=== PATIENT | female | born 1995 | race Caucasian/White ===

== ENCOUNTER 2016-06-09 12:16 | Day surgery (SDC) | payer OTHER ==
[2016-06-09] MEDS ORDERED: MORPHINE SULFATE 4 MG/ML SYRINGE ONE ×2 (13:24→19:09)
[2016-06-09] MEDS ORDERED: SODIUM CHLORIDE 0.9% 1,000 ML ONE (13:24)
[2016-06-09] MEDS ORDERED: ONDANSETRON 4 MG/2ML 2 ML VIAL ONE ×2 (13:24→15:51)
[2016-06-09 13:49] LABS: ABSOLUTE NEUTROPHIL COUNT 3.6 K/mm3 (1.8-7.7); BASO % 0.5 % (0.2-1.0); EOS # 0.2 (0.0-0.5); HEMATOCRIT 36.1 % (37.0-47.0); HEMOGLOBIN 11.2 gm/l (12.0-16.0); IMM NEUT% 0.3 % (0-1); LYMPH # 1.5 (1.0-4.8); LYMPH % 25.2 % (15-45); MEAN CELL VOLUME 85.5 fl (81.0-99.0); MEAN CORPUSCULAR HEMOGLOBIN 26.5 pg (27.0-31.0); MEAN PLATELET VOLUME 11.1 fl (7.4-10.4); MONO # 0.5 (0.0-0.8); MONO % 8.7 % (4-12); NEUT % 62.3 % (43-75); PLATELET COUNT 167 K/mm3 (130-400); RED CELL DISTRIBUTION WIDTH 15.8 % (11.5-14.5)
[2016-06-09 14:20] LABS: ALB/GLOB RATIO 1.3 (>1.0); ALBUMIN 4.1 gm/dL (3.5-5.7); CALCIUM 9.1 mg/dL (8.6-10.3)
[2016-06-09] MEDS ORDERED: LACTATED RINGERS 1,000 ML ONE ×3 (15:02→19:47)
[2016-06-09] MEDS ORDERED: PIPERACILLIN-TAZO PREMIX BAG 50 ML IV ONE (15:02)
[2016-06-09] MEDS ORDERED: BUPIVACAINE 0.5% W/EPI SDV 30 ML VIAL ONE (15:21)
[2016-06-09] MEDS ORDERED: SODIUM CHLORIDE 0.9% 50 ML ONE (15:21)
[2016-06-09] MEDS ORDERED: IOPAMIDOL 300 (61%) 30 ML SDV ONE (15:21)
[2016-06-09] MEDS ORDERED: PROPOFOL 20 ML IV ONE (15:51)
[2016-06-09] MEDS ORDERED: ROCURONIUM BROMIDE 10 MG/ML DOSE IV ONE (15:51)
[2016-06-09] MEDS ORDERED: FENTANYL 5 ML ONE (15:51)
[2016-06-09] MEDS ORDERED: MIDAZOLAM HCL 1 MG/ML 2ML VIAL ONE ×2 (15:51→19:03)
[2016-06-09] MEDS ORDERED: METOCLOPRAMIDE HCL 5 MG/ML 2ML VIAL ONE (17:47)
[2016-06-09] MEDS ORDERED: ATROPINE SULFATE 0.4 MG/1 ML VIAL IV PRN (18:05)
[2016-06-09] MEDS ORDERED: MEPERIDINE 25 MG/ML SYRINGE IV PRN (18:05)
[2016-06-09] MEDS ORDERED: PROMETHAZINE HCL 25 MG/ML VIAL IM PRN (18:05)
[2016-06-09] MEDS ORDERED: ONDANSETRON 4 MG/2ML 2 ML VIAL IV PRN ×2 (18:05→19:52)
[2016-06-09] MEDS ORDERED: MORPHINE SULFATE 4 MG/ML SYRINGE IV PRN ×2 (18:05→19:58)
[2016-06-09] MEDS ORDERED: NALOXONE HCL 0.4 MG/ML VIAL IV PRN (18:05)
[2016-06-09] MEDS ORDERED: LABETALOL HCL 5 MG/ML 20ML VIAL IV PRN (18:05)
[2016-06-09] MEDS ORDERED: LACTATED RINGERS 1,000 ML IV SCH (18:15)
[2016-06-09] MEDS ORDERED: MORPHINE SULFATE 10 MG/ML SYRINGE ONE (18:21)
--- NOTE | 2016-06-09 18:41 | RAD ---
OPERATIVE CHOLANGIOGRAM HISTORY: Laparoscopic cholecystectomy. TECHNIQUE: 16.1 seconds of fluoroscopy time was provided for Dr. Travis for purposes of procedural guidance. 3 fluoroscopic spot images were submitted for review. FINDINGS: Postprocedural change: Surgical clips along the expected region of the cystic duct. No extravasation of contrast. Extrahepatic biliary tree: No persistent filling defect or gross stricturing. Normal passage of contrast into the duodenum. IMPRESSION: Fluoroscopy provided for procedural guidance, clinically for laparoscopic cholecystectomy.
[2016-06-09] MEDS ORDERED: MEPERIDINE 25 MG/ML SYRINGE ONE (19:23)
[2016-06-09] MEDS ORDERED: MORPHINE SULFATE 2 MG/ML SYRINGE IV PRN (19:52)
[2016-06-09] MEDS ORDERED: MORPHINE SULFATE 10 MG/ML SYRINGE IV PRN (19:58)
[2016-06-09] MEDS ORDERED: PUMP TUBING ONE (20:37)
[2016-06-09] MEDS: LACTATED RINGERS 1,000 ML IV SCH (20:46)
[2016-06-09] MEDS: PIPERACILLIN-TAZO PREMIX BAG 3.375 G in Premix (D5W) 50 ml 1 EACH IV SCH (21:34)
[2016-06-09 21:51] VITALS: BMI 34.2
[2016-06-09] MEDS: OXYCODONE HCL 5 MG TABLET PO PRN (22:55)
[2016-06-10] MEDS: KETOROLAC TROMETHAMINE 30 MG/ML 1 ML VIAL IV PRN ×2 (01:08→08:32)
[2016-06-10] MEDS ORDERED: PROMETHAZINE HCL 12.5 MG in SODIUM CHLORIDE 0.9% 50 ML IV PRN (01:23)
[2016-06-10] MEDS ORDERED: PROMETHAZINE HCL 25 MG/ML VIAL ONE (01:32)
[2016-06-10] MEDS ORDERED: SODIUM CHLORIDE 0.9% 50 ML IV ONE (01:35)
[2016-06-10] MEDS ORDERED: PROMETHAZINE HCL 25 MG in SODIUM CHLORIDE 0.9% 50 ML IV PRN (01:38)
[2016-06-10] MEDS: PIPERACILLIN-TAZO PREMIX BAG 3.375 G in Premix (D5W) 50 ml 1 EACH IV SCH ×2 (03:31→05:55)
[2016-06-10 06:11] LABS: HEMATOCRIT 32.3 % (37.0-47.0); HEMOGLOBIN 10.3 gm/l (12.0-16.0); MEAN CORPUSCULAR HEMOGLOBIN 27.1 pg (27.0-31.0); MEAN CORPUSCULAR HGB CONC 31.9 g/dl (33.0-37.0); RED CELL DISTRIBUTION WIDTH 15.3 % (11.5-14.5)
[2016-06-10 06:35] LABS: ALB/GLOB RATIO 1.2 (>1.0); ALBUMIN 3.4 gm/dL (3.5-5.7); CALCIUM 8.4 mg/dL (8.6-10.3)
[2016-06-10 08:10] VITALS: BP 104/66
--- NOTE | 2016-06-10 08:12 | HP ---
MANDIE BYRD [id number] DATE OF ADMISSION: June 09, 2016 CHIEF COMPLAINT: Abdominal pain. HISTORY OF PRESENT ILLNESS: Mandie Byrd is a 20-year-old female who was seen in the emergency room in consultation on June 09, 2016. Apparently she has a three week history of right upper quadrant abdominal pain. She has had some nausea with some vomiting a couple of times. She has had some fevers in the past. She describes the pain as like a spasm. It seems worse at night. She was evaluated by her primary care physician who ordered an ultrasound. The ultrasound shows gallstones with no wall thickening or common bile duct dilatation. She had a positive Booth's sign. She was instructed by her primary care provider to come to the emergency room. She was evaluated in the emergency room and surgical consultation was requested. PAST MEDICAL HISTORY: 1. Childhood asthma. 2. She is currently two months post , not currently . PAST SURGICAL HISTORY: None. CURRENT MEDICATIONS: None. ALLERGIES: BACTRIM. FAMILY HISTORY: Mom and dad have both had gallbladder removed. SOCIAL HISTORY: She does not smoke. She denies alcohol or drug use. REVIEW OF SYSTEMS: CONSTITUTIONAL: No complaints. EYES: No complaints. EARS, NOSE, THROAT: No complaints. CARDIAC: No complaints. PULMONARY: No complaints. GASTROINTESTINAL: As above. GENITOURINARY: No complaints. GYNECOLOGIC: She has not had a menstrual period yet. MUSCULOSKELETAL: No complaints. NEUROLOGIC: She has had some migraine headaches. ENDOCRINE: No complaints. HEMATOLOGIC: No complaints. PSYCHIATRIC: No complaints. PHYSICAL EXAMINATION: VITAL SIGNS: Temperature 97.9, pulse 93, blood pressure 110/73, respirations 18. GENERAL: In general she is awake, alert, appears in no acute distress. HEENT: Head is atraumatic, normocephalic. Her pupils are equal. Sclera is nonicteric. Oropharynx, no exudate or erythema seen. NECK: Is supple. Without lymphadenopathy or thyromegaly. LUNGS: Clear to auscultation bilaterally. CARDIAC: Regular rate and rhythm. No murmurs heard. ABDOMEN: Soft, nondistended. She is tender in the right upper quadrant. She has a Booth's sign. No masses are palpable. No organomegaly appreciated. EXTREMITIES: Are without cyanosis, clubbing or edema. NEUROLOGIC: She is alert and oriented. Sensation is grossly intact in all extremities. PSYCHIATRIC: Shows no signs of anxiety or depression. Appears able to make informed medical decisions. LABORATORIES: White blood cell count is 5.8, hemoglobin is 11.2, and platelets are 167. Sodium 137, potassium 3.8, chloride 104, carbon dioxide is 28, BUN 13, creatinine 0.7, glucose is 83. Total bilirubin is 0.3, AST 46, ALT 165, alkaline phosphatase 149, albumin 4.1. ASSESSMENT: 1. Subacute cholecystitis with cholelithiasis. 2. Two months post . PLAN: With her persistent pain and Booth's sign on ultrasound and clinical exam, I have recommended cholecystectomy. We discussed the procedure of laparoscopic and possible open cholecystectomy. We discussed the risks of bleeding, infection and injury to the liver, common bile duct and the possible need to convert to an open procedure. She expressed understanding and is willing to proceed. We will give her antibiotics here in the emergency room and proceed to the operating room today. cc: Andre Hardwick M.D.
--- NOTE | 2016-06-10 08:29 | OP ---
MANDIE BYRD [id number] DATE OF OPERATION: June 09, 2016 PREOPERATIVE DIAGNOSIS: Acute cholecystitis with cholelithiasis. POSTOPERATIVE DIAGNOSIS: Acute cholecystitis with cholelithiasis. PROCEDURE: LAPAROSCOPIC CHOLECYSTECTOMY WITH INTRAOPERATIVE CHOLANGIOGRAM. SURGEON: Shahid Travis M.D. CONTRACT RECRUITER: Wilber Davis ANESTHESIA: General endotracheal by Catrachito GaleanaNDom INDICATIONS: This is a 20-year-old female who has persistent right upper quadrant pain. She has a Booth's sign. She has elevated liver function tests. She has ultrasound evidence of cholelithiasis without wall thickening or biliary dilation. DESCRIPTION: With informed consent she was taken to the operating room. She was laid supine on the operating room table. General endotracheal anesthetic was administered. The abdomen was prepped and draped in the usual fashion. Local anesthetic was administered below the umbilicus. An incision was made. The fascia was grasped with Yolette clamps and divided with curved Fried scissors. Sutures of Surgilon were placed in the fascial edges and a Ezequiel port was placed. A pneumoperitoneum was created. Local anesthetic was administered in the mid epigastrium and along the right lateral abdominal wall. Incisions were made. The 5 mm ports were placed. The fundus of the gallbladder was grasped and retracted cephalad. The gallbladder was quite intrahepatic. The infundibulum was retracted laterally. The cystic duct was identified and dissected free. It was visible in all planes in a critical view. A clip was placed. The duct was partially transected. A cholangiogram catheter was placed. Cholangiogram was obtained showing flow of contrast in to the duodenum without filling defect. Contrast was seen refluxing up into the hepatic duct. The catheter was removed. Two clips were placed. I ended up placing a third clip to completely occlude the duct, and then it was completely transected. The cystic artery was identified and dissected free. Three clips were placed and it was transected leaving two clips on the stump. There did seem to be another vessel running posterior to the gallbladder within the liver bed. It did go into the gallbladder itself, and put two clips and divided that with cautery. It was moderately difficult to get the gallbladder out of the intrahepatic liver bed. We did spill some bile. This was suctioned. Once , the gallbladder was placed in an EndoCatch bag and removed through the umbilical port site. The right upper quadrant was irrigated. We made sure all bile was out. We made sure there were no spilled stones visible. The ports were removed and the pneumoperitoneum was evacuated. The infraumbilical fascial defect was closed with [id number] of #0 Surgilon. The other fascial defects were small. Skin was closed with subcuticular #4-0 Monocryl. Mastisol and SteriStrips were placed. Sterile dressings were applied. She tolerated the procedure and was taken to the recovery room in stable condition. Note was made that needle, instrument and lap counts were reported as correct at time of closure. Cc: Andre Hardwick M.D.
--- NOTE | 2016-06-10 09:16 | PDOC43 ---
- Subjective Subjective: Reports Pain Tolerable, Reports Other (Headache), Denies Nausea - Objective Vital Signs Temperature 98.4 F 06/10/16 08:00 Pulse Rate 110 06/10/16 08:00 Respiratory Rate 16 06/10/16 08:00 Blood Pressure 104/66 06/10/16 08:00 O2 Saturation by Pulse Oximetry 94 06/10/16 08:00 Oxygen Delivery Method Room Air Oxygen Flow Rate 0 Laboratory 06/10/16 05:30 06/10/16 05:30 06/10/16 06/09/16 05:30 13:13 RBC 3.80 L MCH 26.5 L MCHC 31.9 L 31.0 L RDW 15.3 H 15.8 H Calcium 8.4 L AST 51 H 46 H ALT 124 H 165 H Alkaline Phosphatase 128 H 149 H Total Protein 6.3 L Albumin 3.4 L Active Medication Orders Category Date Time Status Ketorolac Tromethamine [Toradol] Med 06/09/16 19:52 Active 30 mg IV Q6H PRN Lactated Ringers 1,000 ml Med 06/09/16 19:52 Active IV 75 mls/hr Morphine Sulfate Med 06/09/16 19:52 Active 1 - 6 mg IV Q1H PRN Morphine Sulfate Med 06/09/16 19:58 Active 1 - 6 mg IV Q1H PRN Morphine Sulfate Med 06/09/16 19:58 Active 1 - 6 mg IV Q1H PRN Ondansetron 4 mg/2ml Vial [Zofran] Med 06/09/16 19:52 Active 4 mg IV Q6H PRN Oxycodone HCl [Roxicodone] Med 06/09/16 19:52 Active 5 - 10 mg PO Q4H PRN Piperacillin-Tazo Premix Bag [Zosyn 3.375 G] 3.375 g Med 06/10/16 12:00 Active Premix (D5W) 50 ml 1 each IV Q6H Promethazine HCl [Phenergan] 12.5 mg Med 06/10/16 01:23 Active Sodium Chloride 0.9% 50 ml IV Q6H Sodium Chloride 0.9% Flush [Normal Saline 10ml Flush] Med 06/09/16 19:59 Active 10 - 50 ml IV PRN PRN Sodium Chloride 0.9% Flush [Normal Saline 10ml Flush] Med 06/10/16 01:00 Active 10 ml IV Q8HR Intake and Output 06/09/16 06/10/16 06/11/16 06:59 06:59 06:59 Intake Total 3778 277 Output Total 960 Balance 2818 277 General: Alert, Oriented x3 Abdomen: Soft Psych/Mental Status: Normal Affect - Assessment/ Plan (1) Calculus of gallbladder with acute cholecystitis without obstruction Status: AcuteAssessment/ Plan: Should be able to go home this am. No antibiotics needed.
[2016-06-10] MEDS: LACTATED RINGERS 1,000 ML IV SCH (09:31)
[2016-06-10] MEDS: OXYCODONE HCL 5 MG TABLET PO PRN (10:13)
[2016-06-10] MEDS ORDERED: PIPERACILLIN-TAZO PREMIX BAG 3.375 G in Premix (D5W) 50 ml 1 EACH IV SCH (12:00)
--- NOTE | 2016-06-14 12:56 | SURGPATH ---
[facility] [address] [place] [id number] Patient Name: MANDIE BYRD MR#: [id number] : 1995 Gender: F Specimen #: [id number] Collected: 06/09/2016 Received: 06/13/2016 Reported: 06/14/2016 Submitting Phys: SHRUTHI CSEAR Copy To Phys: [facility] JAZZMINE MARADIAGA Clinical History / Pre-Operative Diagnosis: CHOLELITHIASIS Specimen Source / Surgical Procedure Performed: GALLBLADDER Interpretation: GALLBLADDER, CHOLECYSTECTOMY: - CHRONIC CHOLECYSTITIS WITH CHOLELITHIASIS Electronically Signed Out Damon Boothe M.D. Gross Description: The specimen is received in a formalin filled container labeled with the patient's name and "gallbladder". An intact gallbladder is 6.0 x 2.5 cm. The serosa is smooth and perea. Adjacent to the cystic duct surgical margin is a 0.6 cm perea tentatively identified lymph node. The wall averages 0.3 cm. The mucosa is green perea velvety. There is no nodule or induration. The lumen contains multiple nodular yellow perea calculi up to 0.4 cm. Four territory representative sections are submitted in one cassette including a cross section through the cystic duct surgical margin, a cross section of the pericystic lymph node, a central cross section and a longitudinal section through the fundus. Gabriel Mccray PDom Microscopic Description: The sections show thickened gallbladder wall with downward budding of the epithelium into the muscularis propria. A benign lymph node is also present. 1: [id number] K80.45
== END 2016-06-10 11:38 | disposition home or self-care (01) ==
LOC: ED 12:16 → SDC 15:02 → MS 20:30 → SDC 06-10 11:38
PROVIDERS: ATTEND Surgery
PROC: 0FT44ZZ Resection of Gallbladder, Percutaneous Endoscopic Approach (ICD-10-PCS; principal; 2016-06-09)
PROC: BF141ZZ Fluoroscopy of Gallbladder, Bile Ducts and Pancreatic Ducts using Low Osmolar Contrast (ICD-10-PCS; 2016-06-09)
DX: K80.00 Calculus of gallbladder with acute cholecystitis without obstruction (principal); R51 Headache

== ENCOUNTER 2016-06-15 22:32 | Emergency (ER) | payer OTHER ==
[2016-06-16] MEDS ORDERED: ACETAMINOPHEN 500 MG TABLET ONE (00:18)
[2016-06-16] MEDS ORDERED: IBUPROFEN 100 MG/5 ML SYRINGE ONE (00:35)
== END 2016-06-16 01:44 | disposition home or self-care (01) ==
LOC: ED 22:32
DX: B34.9 Viral infection, unspecified (principal); J02.9 Acute pharyngitis, unspecified
CPT/HCPCS: 87880; 99283 ×2; A9270 ×2